=== PATIENT | female | born 1935 | race Caucasian/White ===

== ENCOUNTER 2019-08-25 09:23 | Outpatient (CLI) | payer MEDICARE, BC, SELFPAY ==
[2019-08-25 11:11] LABS: Alanine Aminotransferase 23 U/L (4-35); Albumin Level 3.9 g/dL (3.5-5.1); Alkaline Phosphatase 95 U/L (38-126); Aspartate Amino Transferase 23 U/L (14-36); Bilirubin,Total 0.4 mg/dL (0.2-1.3); Blood Urea Nitrogen 24 mg/dL (7-17); Calcium 9.4 mg/dL (8.4-10.2); Carbon Dioxide 31 mmol/L (22-30); Chloride 104 mmol/L (98-107); Cholesterol 179 mg/dL (0-200); Estimated Glomerular Filt Rate > 60; Glucose 83 mg/dL (65-105); HDL Direct 50 mg/dL; Potassium 4.2 mmol/L (3.4-5.0); Sodium 140 mmol/L (137-145); Triglycerides 153 mg/dL (<150)
[2019-08-25 11:22] LABS: LDL Cholesterol Direct 87 mg/dL
== END 2019-08-25 09:24 | disposition home or self-care (01) ==
LOC: ANHWCLAB 09:26
PROVIDERS: PCP Internal Medicine; Visit Provider Nurse Practitioner
DX: E78.5 Hyperlipidemia, unspecified (principal)
CPT/HCPCS: 36415; 80053; 80061

== ENCOUNTER 2019-11-01 12:32 | Outpatient (CLI) | payer MEDICARE, BC, SELFPAY ==
--- NOTE | ~2019-11-01 | MM_ITS ---
EXAMINATION: MM screening dawn LT w emilie HISTORY: Screening mammogram TECHNIQUE: Craniocaudal and mediolateral oblique 3-D tomosynthesis images were obtained and synthetic 2-D images were generated. CAD analysis was submitted and interpreted. COMPARISON: 10/12/2018, 10/06/2017 left digital screening mammogram examinations BREAST PARENCHYMAL COMPOSITION: There are scattered areas of fibroglandular density. FINDINGS: There is a biopsy marker on the left. History of prior benign left breast biopsy. There is no evidence of suspicious mass, calcification, or architectural distortion to suggest malignancy in e ither breast. There has been no suspicious interval change. IMPRESSION: 1. No mammographic evidence of malignancy. 2. Recommend routine screening mammography in one year. BI-RADS Category 2: Benign finding(s). Reviewed, dictated and finalized at location A.
--- NOTE | ~2019-11-01 | DEXA_ITS ---
Bone Density Report Name: Gisell Cummings Age: 84 Sex: Female Ethnicity: White Date of : 1935 Indication: postmenopausal; parental hip fracture; height loss; cancer; hysterectomy; Referring Provider: Javon Kwan Study: Bone densitometry was performed. Exam Date: November 01, 2019 Accession number: [id number] Bone Density: Region BMD T-score Z-score Classification AP Spine (L1-L4) 0.799 -2.3 0.6 Osteopenia Femoral Neck (Left) 0.715 -1.2 1.3 Osteopenia Total Hip (Left) 0.815 -1.0 1.2 Normal Total Hip Bilateral Avg 0.754 -1.5 0.7 Osteopenia Femoral Neck (Right) 0.621 -2.1 0.4 Osteopenia Total Hip (Right) 0.692 -2.1 0.2 Osteopenia World Health Organization criteria for BMD impression classify patients as: Normal (T-score at or above -1.0), Osteopenia (T-score between -1.0 and -2.5), or Osteoporosis (T-score at or below -2.5). 10-year Fracture Risk(1): Major Osteoporotic Fracture 30% Hip Fracture 20% Reported Risk Factors: [place] (), Neck BMD=0.621, BMI=25.9, parental fracture (1) FRAX(R) Version 3.08. Fracture probability calculated for an untreated patient. Fracture probability may be lower if the patient has received treatment. Clinical Information Provided by Patient: Parent has had a hip fracture Has used the following medications: Vitamin D, Calcium Has the following medical conditions: Cancer, Hysterectomy Patient maximum height was 65 Menopause Age: 27 Does not regularly consume dairy products Drinks caffeinated beverages Onset of menses at age 13 Number of children 0 Impression: The patient has low bone mass, based on the Total Spine T-score. The patient has an estimated ten-year risk of hip fracture of 20% and an estimated ten-year risk of major fracture of 30%, based on the WHO FRAX algorithm. The patient has risk factors, including: parental hip fracture. Discussion: BONE DENSITY IS LOW AT ONE OR MORE SKELETAL SITES. THE PATIENT'S BMD AND CLINICAL RISK FACTORS CONTRIBUTE TO THIS PATIENT'S HIGH RISK OF FRACTURE. This patient's lowest T-score is low at one or more skeletal sites. It meets the World Health Organization's (WHO) criteria for ?low bone mass? (T-score between -1.0 and -2.5). The patient's 10-year risk of hip fracture and 10 year risk of a major osteoporotic fracture as calculated by FRAX exceeds the threshold where pharmacological therapy is recommended by the National Osteoporosis Foundation (NOF). However, all treatment decisions require clinical judgment and consideration of individual patient factors, including patient preferences, comorbidities, previous drug use, risk factors not captured in the FRAX model (e.g., frailty, falls, vitamin D deficiency, increased bone turnover, interval significant decline in bone density) and possible under or overestimation of fractu
== END 2019-11-01 12:33 | disposition home or self-care (01) ==
PROVIDERS: PCP Internal Medicine; Visit Provider Nurse Practitioner
DX: Z12.31 Encounter for screening mammogram for malignant neoplasm of breast (principal); Z78.0 Asymptomatic menopausal state; M85.89 Other specified disorders of bone density and structure, multiple sites
CPT/HCPCS: 77063; 77067; 77080

== ENCOUNTER 2020-02-28 08:27 | Outpatient (CLI) | payer MEDICARE, BC, SELFPAY ==
[2020-02-28 09:09] LABS: Alanine Aminotransferase 36 U/L (4-35); Albumin Level 4.1 g/dL (3.5-5.1); Alkaline Phosphatase 91 U/L (38-126); Anion Gap 4 mmol/L (8-16); Aspartate Amino Transferase 30 U/L (14-36); Bilirubin,Total 0.7 mg/dL (0.2-1.3); Blood Urea Nitrogen 23 mg/dL (7-17); Calcium 9.7 mg/dL (8.4-10.2); Carbon Dioxide 31 mmol/L (22-30); Chloride 104 mmol/L (98-107); Cholesterol 216 mg/dL (0-200); Estimated Glomerular Filt Rate 60; Glucose 93 mg/dL (65-105); HDL Direct 63 mg/dL; Potassium 4.1 mmol/L (3.4-5.0); Sodium 139 mmol/L (137-145); Triglycerides 101 mg/dL (<150)
[2020-02-28 09:20] LABS: LDL Cholesterol Direct 116 mg/dL
[2020-02-28 09:39] LABS: Thyroid Stimulating Hormone 0.534 uIU/mL (0.465-4.680)
== END 2020-02-28 08:28 | disposition home or self-care (01) ==
PROVIDERS: PCP Internal Medicine; Visit Provider Internal Medicine
DX: I63.9 Cerebral infarction, unspecified (principal); I10 Essential (primary) hypertension; E78.5 Hyperlipidemia, unspecified; E03.9 Hypothyroidism, unspecified
CPT/HCPCS: 36415; 80053; 80061; 84443

== ENCOUNTER 2020-08-30 09:34 | Outpatient (CLI) | payer MEDICARE, BC, SELFPAY ==
[2020-08-30 12:59] LABS: Alanine Aminotransferase 33 U/L (4-35); Albumin Level 3.9 g/dL (3.5-5.1); Alkaline Phosphatase 70 U/L (38-126); Anion Gap 6 mmol/L (8-16); Aspartate Amino Transferase 32 U/L (14-36); Bilirubin,Total 0.5 mg/dL (0.2-1.3); Blood Urea Nitrogen 24 mg/dL (7-17); Calcium 9.1 mg/dL (8.4-10.2); Carbon Dioxide 30 mmol/L (22-30); Chloride 104 mmol/L (98-107); Cholesterol 198 mg/dL (0-200); Estimated Glomerular Filt Rate > 60; Glucose 84 mg/dL (65-105); HDL Direct 81 mg/dL; Potassium 4.2 mmol/L (3.4-5.0); Sodium 140 mmol/L (137-145); Triglycerides 104 mg/dL (<150)
[2020-08-30 13:10] LABS: LDL Cholesterol Direct 95 mg/dL
[2020-08-30 13:29] LABS: Thyroid Stimulating Hormone 0.685 uIU/mL (0.465-4.680)
== END 2020-08-30 09:35 | disposition home or self-care (01) ==
LOC: ANHWCLAB 09:44
PROVIDERS: PCP Internal Medicine; Visit Provider Internal Medicine
DX: E78.2 Mixed hyperlipidemia (principal); I10 Essential (primary) hypertension; E03.9 Hypothyroidism, unspecified; E78.5 Hyperlipidemia, unspecified
CPT/HCPCS: 36415; 80053; 80061; 84443

== ENCOUNTER → 2020-11-06 10:57 | Outpatient (CLI) | payer MEDICARE, BC, SELFPAY ==
--- NOTE | ~2020-11-06 | MM_ITS ---
EXAMINATION: MM screening dawn LT w emilie HISTORY: Screening mammogram TECHNIQUE: Craniocaudal and mediolateral oblique 3-D tomosynthesis images were obtained and synthetic 2-D images were generated. CAD analysis was submitted and interpreted. COMPARISON: 11/01/2019, 10/12/2018, 10/06/2017 left screening mammogram examinations BREAST PARENCHYMAL COMPOSITION: The breasts are heterogeneously dense, which may obscure small masses . FINDINGS: Status post right mastectomy for breast cancer 2014. Biopsy marker on the left; history of benign left breast biopsy in 2017. There is no evidence of suspicious mass, calcification, or architectural distortion to suggest malig franki in either breast. There has been no suspicious interval change. IMPRESSION: 1. No mammographic evidence of malignancy. 2. Recommend routine screening mammography in one year. BI-RADS Category 2: Benign finding(s). Reviewed, dictated and finalized at location A.
== END ==
PROVIDERS: PCP Internal Medicine; Visit Provider Nurse Practitioner
DX: Z12.31 Encounter for screening mammogram for malignant neoplasm of breast (principal)
CPT/HCPCS: 77063; 77067

== ENCOUNTER 2021-03-21 10:08 | Outpatient (CLI) | payer MEDICARE, BC, SELFPAY ==
[2021-03-21 13:46] LABS: LDL Cholesterol Direct 112 mg/dL
[2021-03-21 13:56] LABS: Alanine Aminotransferase 25 U/L (4-35); Albumin Level 4.3 g/dL (3.5-5.1); Alkaline Phosphatase 71 U/L (38-126); Anion Gap 8 mmol/L (8-16); Aspartate Amino Transferase 27 U/L (14-36); Bilirubin,Total 0.3 mg/dL (0.2-1.3); Blood Urea Nitrogen 23 mg/dL (7-17); Calcium 9.7 mg/dL (8.4-10.2); Carbon Dioxide 30 mmol/L (22-30); Chloride 104 mmol/L (98-107); Cholesterol 216 mg/dL (0-200); Estimated Glomerular Filt Rate > 60; Glucose 95 mg/dL (65-110); HDL Direct 67 mg/dL; Potassium 4.3 mmol/L (3.4-5.0); Sodium 142 mmol/L (137-145); Triglycerides 142 mg/dL (<150)
[2021-03-21 14:07] LABS: Thyroid Stimulating Hormone 0.373 uIU/mL (0.465-4.680)
== END 2021-03-21 10:09 | disposition home or self-care (01) ==
PROVIDERS: PCP Internal Medicine; Visit Provider Nurse Practitioner
DX: E78.2 Mixed hyperlipidemia (principal); Z13.21 Encounter for screening for nutritional disorder; E03.9 Hypothyroidism, unspecified
CPT/HCPCS: 36415; 80053; 80061; 84443

== ENCOUNTER → 2021-07-11 09:38 | Outpatient (CLI) | payer MEDICARE, BC, SELFPAY ==
[2021-07-11 12:54] LABS: Influenza A QL RT-PCR Negative (Negative); Influenza B QL RT-PCR Negative (Negative); SARS-CoV-2 RNA PCR Negative
== END ==
PROVIDERS: PCP Internal Medicine; Visit Provider Internal Medicine
DX: R68.89 Other general symptoms and signs (principal); Z20.822 Contact with and (suspected) exposure to COVID-19
CPT/HCPCS: 87502; C9803; U0003; U0005

== ENCOUNTER 2021-09-19 11:35 | Outpatient (CLI) | payer MEDICARE, BC, SELFPAY ==
[2021-09-19 13:34] LABS: Alanine Aminotransferase 29 U/L (4-35); Albumin Level 4.2 g/dL (3.5-5.1); Alkaline Phosphatase 63 U/L (38-126); Anion Gap 6 mmol/L (8-16); Aspartate Amino Transferase 29 U/L (14-36); Bilirubin,Total 0.4 mg/dL (0.2-1.3); Blood Urea Nitrogen 28 mg/dL (7-17); Calcium 9.3 mg/dL (8.4-10.2); Carbon Dioxide 30 mmol/L (22-30); Chloride 104 mmol/L (98-107); Cholesterol 214 mg/dL (0-200); Estimated Glomerular Filt Rate 53; Glucose 91 mg/dL (65-110); HDL Direct 53 mg/dL; Potassium 3.9 mmol/L (3.4-5.0); Sodium 140 mmol/L (137-145); Triglycerides 130 mg/dL (<150)
[2021-09-19 13:45] LABS: LDL Cholesterol Direct 104 mg/dL
[2021-09-19 13:46] LABS: Vitamin D 25 Hydroxy 54.8 ng/mL
== END 2021-09-19 11:36 | disposition home or self-care (01) ==
PROVIDERS: PCP Internal Medicine; Visit Provider Internal Medicine
DX: E78.2 Mixed hyperlipidemia (principal); I10 Essential (primary) hypertension; E03.9 Hypothyroidism, unspecified; Z13.21 Encounter for screening for nutritional disorder; E55.9 Vitamin D deficiency, unspecified
CPT/HCPCS: 36415; 80053; 80061; 82306; 84443

== ENCOUNTER → 2022-01-04 10:11 | Outpatient (CLI) | payer MEDICARE, BC, SELFPAY ==
--- NOTE | ~2022-01-04 | MM_ITS ---
EXAMINATION: MM screening dawn LT w emilie HISTORY: Screening TECHNIQUE: Craniocaudal and mediolateral oblique 3-D tomosynthesis images were obtained and synthetic 2-D images were generated. CAD analysis was submitted and interpreted. COMPARISON: Comparison to multiple prior studies sequentially, with oldest reviewed study dated 10/19. BREAST PARENCHYMAL COMPOSITION: The breasts are heterogeneously dense, which may obscure small masses . FINDINGS: There is no evidence of suspicious mass, calcification, or architectural distortion to sugg est malignancy in the left breast. There has been no suspicious interval change. IMPRESSION: 1. No mammographic evidence of malignancy. 2. Recommend routine screening mammography in one year. BI-RADS Category 1: Negative Reviewed, dictated and finalized at location A.
--- NOTE | ~2022-01-04 | DEXA_ITS ---
Bone Density Report Name: TAMMY DELA CRUZ Age: 86 Sex: Female Ethnicity: White Date of : 1935 Indication: osteopenia; monitoring treatment; parental hip fracture; height loss; hysterectomy; postmenopausal Referring Provider: ABRAHAM ROBERTS Study: Bone densitometry was performed. Exam Date: January 04, 2022 Accession number: [id number] Bone Density: Region BMD T-score Z-score Classification AP Spine (L1-L4) 0.814 -2.1 0.8 Osteopenia Femoral Neck (Left) 0.612 -2.1 0.4 Osteopenia Total Hip (Left) 0.808 -1.1 1.2 Osteopenia Femoral Neck (Right) 0.623 -2.0 0.5 Osteopenia Total Hip (Right) 0.759 -1.5 0.8 Osteopenia Total Hip Mean 0.784 -1.3 1.0 Osteopenia World Health Organization criteria for BMD impression classify patients as: Normal (T-score at or above -1.0), Osteopenia (T-score between -1.0 and -2.5), or Osteoporosis (T-score at or below -2.5). 10-year Fracture Risk: FRAX not reported because: Treated for osteoporosis Previous Exams: Region Exam Age BMD T-score BMD Change BMD Change Date g/cm2 vs Baseline vs Previous AP Spine(L1-L4) 01/04/2022 86 0.814 -2.1 -0.065* 0.020 10/06/2017 82 0.794 -2.3 -0.085* -0.047* 03/27/2015 80 0.841 -1.9 -0.038* -0.019 03/24/2013 78 0.859 -1.7 -0.020 -0.010 10/17/2010 75 0.870 -1.6 -0.009 0.003 01/06/2008 72 0.867 -1.6 -0.012 -0.012 11/13/2005 70 0.879 -1.5 Total Hip(Left) 01/04/2022 86 0.808 -1.1 -0.183* -0.089* 10/06/2017 82 0.897 -0.4 -0.094* -0.045* 03/27/2015 80 0.942 0.0 -0.050* 0.073* 03/24/2013 78 0.869 -0.6 -0.122* -0.029* 10/17/2010 75 0.898 -0.4 -0.093* -0.068* 01/06/2008 72 0.966 0.2 -0.025 -0.025 11/13/2005 70 0.991 0.4 Total Hip(Right) 01/04/2022 86 0.759 -1.5 -0.143* -0.025 10/06/2017 82 0.784 -1.3 -0.118* -0.073* 03/27/2015 80 0.856 -0.7 -0.045* -0.052* 03/24/2013 78 0.908 -0.3 0.007 0.094* 10/17/2010 75 0.815 -1.0 -0.087* -0.104* 01/06/2008 72 0.919 -0.2 0.018 0.018 11/13/2005 70 0.902 -0.3 *Denotes significance at 95% confidence level, LSC for AP Spine = 0.022 g/cm2, LSC for Total Hip = 0.027 g/cm2 Clinical Information Provided by Patient:
== END ==
PROVIDERS: PCP Internal Medicine; Visit Provider Nurse Practitioner
DX: Z12.31 Encounter for screening mammogram for malignant neoplasm of breast (principal); Z78.0 Asymptomatic menopausal state; M85.851 Other specified disorders of bone density and structure, right thigh; M85.852 Other specified disorders of bone density and structure, left thigh
CPT/HCPCS: 77063; 77067; 77080

== ENCOUNTER 2022-04-11 08:43 | Outpatient (CLI) | payer MEDICARE, BC, SELFPAY ==
[2022-04-11 17:20] LABS: Alanine Aminotransferase 26 U/L (6-35); Albumin Level 4.3 g/dL (3.5-5.1); Alkaline Phosphatase 62 U/L (38-126); Anion Gap 14 mmol/L (8-16); Aspartate Amino Transferase 84 U/L (14-36); Bilirubin,Total 0.5 mg/dL (0.2-1.3); Blood Urea Nitrogen 21 mg/dL (7-17); Calcium 9.1 mg/dL (8.4-10.2); Carbon Dioxide 27 mmol/L (22-30); Chloride 102 mmol/L (98-107); Cholesterol 224 mg/dL (0-200); Estimated Glomerular Filt Rate 53; Glucose 81 mg/dL (65-110); HDL Direct 54 mg/dL; Sodium 143 mmol/L (137-145); Triglycerides 124 mg/dL (<150)
[2022-04-11 17:31] LABS: LDL Cholesterol Direct 101 mg/dL
== END 2022-04-11 08:44 | disposition home or self-care (01) ==
LOC: ANHWCLAB 08:48
PROVIDERS: PCP Internal Medicine; Visit Provider Nurse Practitioner
DX: E78.5 Hyperlipidemia, unspecified (principal)
CPT/HCPCS: 36415; 80053; 80061

== ENCOUNTER → 2023-03-10 10:12 | Outpatient (CLI) | payer MEDICARE, BC, SELFPAY ==
--- NOTE | ~2023-03-10 | MM_ITS ---
EXAMINATION: MM screening dawn LT w emilie HISTORY: Screening mammogram TECHNIQUE: Craniocaudal and mediolateral oblique 3-D tomosynthesis images were obtained and synthetic 2-D images were generated. CAD analysis was submitted and interpreted. COMPARISON: 01/04/2022, 11/06/2020, 11/01/2019 left screening mammogram examinations BREAST PARENCHYMAL COMPOSITION: The breasts are heterogeneously dense, which may obscure small masses . FINDINGS: History of right mastectomy in 2014 for breast malignancy. History of benign left breast bi opsy in 2017, with radiopaque biopsy marker noted in the upper inner quadrant. Scattered benign calcifications. There is no evidence of suspicious mass, calcification, or architectural distortion to suggest malign blas in either breast. There has been no suspicious interval change. IMPRESSION: 1. Status post post right mastectomy for breast cancer. No mammographic evidence of malignancy of lef t breast. 2. Recommend routine screening mammography in one year. BI-RADS Category 2: Benign finding(s). Reviewed, dictated and finalized at location A. IMPRESSION: 1. Status post post right mastectomy for breast cancer. No mammographic evidenc e of malignancy of left breast. 2. Recommend routine screening mammography in one year. BI-RADS Category 2: Benign finding(s).
== END ==
PROVIDERS: PCP Nurse Practitioner Family; Visit Provider Nurse Practitioner Family
DX: Z12.31 Encounter for screening mammogram for malignant neoplasm of breast (principal)
CPT/HCPCS: 77063; 77067

== ENCOUNTER 2023-04-25 08:26 | Outpatient (CLI) | payer MEDICARE, BC, SELFPAY ==
[2023-04-25 16:35] LABS: Basophils Percent Auto 0.8 % (0.2-1.2); Eosinophils Absolute Auto 0.1 K/mm3 (0-0.3); Eosinophils Percent Auto 2.3 % (0-4.4); Hematocrit 40.2 % (37.0-47.0); Hemoglobin 12.5 g/dL (12.0-15.0); Immature Granulocyte Absolute 0.02 K/mm3 (0.00-0.031); Immature Granulocyte Percent A 0.4 % (0-0.5); Lymphocytes Absolute Auto 1.84 K/mm3 (0.9-3.2); Lymphocytes Percent Auto 38.2 % (18.3-44.2); Mean Corpuscular HGB Conc 31.1 g/dl (32-36); Mean Corpuscular Hemoglobin 30.5 pg (26-34); Mean Platelet Volume 10.4 fl (7.4-10.4); Monocytes Absolute Auto 0.4 K/mm3 (0.1-0.6); Monocytes Percent Auto 7.9 % (2.6-8.5); Neutrophils Absolute Auto 2.4 K/mm3 (1.3-6.7); Neutrophils Percent Auto 50.4 % (45.5-73.1); Platelet Count Result 260 k/mm3 (150-375); Red Cell Distribution Width 13.3 % (11.5-14.5); White Blood Count 4.8 K/mm3 (4.5-10.0)
[2023-04-25 19:05] LABS: Alanine Aminotransferase 26 U/L (6-35); Albumin Level 4.1 g/dL (3.5-5.1); Alkaline Phosphatase 53 U/L (38-126); Anion Gap 11 mmol/L (8-16); Aspartate Amino Transferase 64 U/L (14-36); Bilirubin,Total 0.5 mg/dL (0.2-1.3); Blood Urea Nitrogen 27 mg/dL (7-17); Calcium 9.1 mg/dL (8.4-10.2); Carbon Dioxide 26 mmol/L (22-30); Chloride 104 mmol/L (98-107); Estimated Glomerular Filt Rate 52; Glucose 74 mg/dL (65-110); Potassium 4.2 mmol/L (3.4-5.0); Sodium 141 mmol/L (137-145)
== END 2023-04-25 08:27 | disposition home or self-care (01) ==
LOC: ANHWCLAB 08:28
PROVIDERS: PCP Nurse Practitioner Family; Visit Provider Nurse Practitioner Family
DX: E03.9 Hypothyroidism, unspecified (principal); I10 Essential (primary) hypertension; E78.2 Mixed hyperlipidemia; Z85.3 Personal history of malignant neoplasm of breast; Z12.39 Encounter for other screening for malignant neoplasm of breast
CPT/HCPCS: 36415; 80053; 84443; 85025

== ENCOUNTER 2023-10-30 09:39 | Outpatient (CLI) | payer MEDICARE, BC, SELFPAY ==
[2023-10-30 16:54] LABS: Alanine Aminotransferase 24 U/L (6-35); Albumin Level 4.2 g/dL (3.5-5.1); Alkaline Phosphatase 66 U/L (38-126); Anion Gap 7 mmol/L (4-12); Aspartate Amino Transferase 69 U/L (14-36); Bilirubin,Total 0.5 mg/dL (0.2-1.3); Blood Urea Nitrogen 25 mg/dL (7-17); Calcium 9.2 mg/dL (8.4-10.2); Carbon Dioxide 28 mmol/L (22-30); Chloride 105 mmol/L (98-107); Cholesterol 215 mg/dL (0-200); Estimated Glomerular Filt Rate 47; Glucose 87 mg/dL (65-110); HDL Direct 59 mg/dL; Potassium 3.9 mmol/L (3.4-5.0); Sodium 140 mmol/L (137-145); Triglycerides 157 mg/dL (<150)
[2023-10-30 17:05] LABS: LDL Cholesterol Direct 115 mg/dL
== END 2023-10-30 09:40 | disposition home or self-care (01) ==
PROVIDERS: PCP Nurse Practitioner Family; Visit Provider Nurse Practitioner Family
DX: I10 Essential (primary) hypertension (principal)
CPT/HCPCS: 36415; 80053; 80061

== ENCOUNTER 2024-04-17 12:12 | Outpatient (CLI) | payer MEDICARE, BC, SELFPAY ==
--- NOTE | ~2024-04-17 | MM_ITS ---
EXAMINATION: MM screening dawn LT w emilie HISTORY: Screening mammogram TECHNIQUE: Craniocaudal and mediolateral oblique 3-D tomosynthesis images were obtained and synthetic 2-D images were generated. CAD analysis was submitted and interpreted. COMPARISON: 03/10/2023, 01/04/2022, 11/06/2020 BREAST PARENCHYMAL COMPOSITION:Not Dense. There are scattered areas of fibroglandular density. FINDINGS: No suspicious mass, calcification, or architectural distortion are identified in either chel ast to suggest malignancy. There has been no suspicious interval change. IMPRESSION: No mammographic evidence of malignancy. Recommend routine screening mammography in one year. BI-RADS Category 1: Negative Reviewed, dictated and finalized at location . K REPAIRER
== END 2024-04-17 12:13 | disposition home or self-care (01) ==
LOC: MICIMG 12:13
PROVIDERS: PCP Nurse Practitioner Family; Visit Provider Nurse Practitioner Family
DX: Z12.31 Encounter for screening mammogram for malignant neoplasm of breast (principal)
CPT/HCPCS: 77063; 77067

== ENCOUNTER 2024-05-15 09:00 | Outpatient (CLI) | payer MEDICARE, BC, SELFPAY ==
[2024-05-15 09:27] LABS: Basophils Absolute Auto 0.1 K/mm3 (0.0-0.1); Basophils Percent Auto 0.8 % (0.2-1.2); Eosinophils Absolute Auto 0.1 K/mm3 (0-0.3); Eosinophils Percent Auto 2.4 % (0-4.4); Hematocrit 40.9 % (37.0-47.0); Immature Granulocyte Absolute 0.03 K/mm3 (0.00-0.031); Immature Granulocyte Percent A 0.5 % (0-0.5); Lymphocytes Absolute Auto 1.99 K/mm3 (0.9-3.2); Lymphocytes Percent Auto 33.6 % (18.3-44.2); Mean Corpuscular HGB Conc 31.8 g/dl (32-36); Mean Corpuscular Hemoglobin 30.4 pg (26-34); Mean Corpuscular Volume 95.8 fl (80-100); Mean Platelet Volume 10.2 fl (7.4-10.4); Monocytes Absolute Auto 0.4 K/mm3 (0.1-0.6); Monocytes Percent Auto 7.4 % (2.6-8.5); Neutrophils Absolute Auto 3.3 K/mm3 (1.3-6.7); Neutrophils Percent Auto 55.3 % (45.5-73.1); Platelet Count Result 288 k/mm3 (150-375); Red Blood Count 4.27 M/mm3 (4.2-5.4); Red Cell Distribution Width 12.9 % (11.5-14.5); White Blood Count 5.9 K/mm3 (4.5-10.0)
[2024-05-15 09:45] LABS: Alanine Aminotransferase 26 U/L (6-35); Albumin Level 4.3 g/dL (3.5-5.1); Alkaline Phosphatase 61 U/L (38-126); Anion Gap 5 mmol/L (4-12); Aspartate Amino Transferase 28 U/L (14-36); Bilirubin,Total 0.4 mg/dL (0.2-1.3); Blood Urea Nitrogen 25 mg/dL (7-17); Calcium 9.6 mg/dL (8.4-10.2); Carbon Dioxide 31 mmol/L (22-30); Chloride 106 mmol/L (98-107); Estimated Glomerular Filt Rate 47; Glucose 93 mg/dL (65-110); Potassium 4.2 mmol/L (3.4-5.0); Sodium 142 mmol/L (137-145)
== END 2024-05-15 09:01 | disposition home or self-care (01) ==
LOC: ANHLAB 09:03
PROVIDERS: PCP Nurse Practitioner Family; Visit Provider Nurse Practitioner Family
DX: E03.9 Hypothyroidism, unspecified (principal); I10 Essential (primary) hypertension; E78.2 Mixed hyperlipidemia; N32.81 Overactive bladder; I63.9 Cerebral infarction, unspecified; C50.919 Malignant neoplasm of unspecified site of unspecified female breast
CPT/HCPCS: 36415; 80053; 84443; 85025

== ENCOUNTER 2024-09-01 12:23 | Outpatient (CLI) | payer MEDICARE, BC, SELFPAY ==
--- NOTE | ~2024-09-01 | XR_ITS ---
Left Knee Technique: AP, lateral, and sunrise views were obtained. Clinical History: Pain Findings: No fracture or dislocation is seen. Osseous alignment is anatomic. Mild tricompartmental de generative changes present. Soft tissues are unremarkable. No joint effusion is seen. Impression: Mild tricompartmental degenerative change. Reviewed, dictated and finalized at [facility]. Impression: Mild tricompartmental degenerative change.
== END 2024-09-01 12:24 | disposition home or self-care (01) ==
PROVIDERS: PCP Nurse Practitioner Family; Visit Provider Nurse Practitioner Family
DX: M25.562 Pain in left knee (principal); R93.6 Abnormal findings on diagnostic imaging of limbs
CPT/HCPCS: 73562

== ENCOUNTER 2024-10-28 13:06 | Outpatient (CLI) | payer MEDICARE, BC, SELFPAY ==
--- NOTE | ~2024-10-28 | DEXA_ITS ---
Bone Density Report Name: TAMMY DELA CRUZ Age: 89 Sex: Female Ethnicity: White Date of : 1935 Indication: osteopenia; monitoring treatment; parental hip fracture; height loss; cancer; hysterectomy; Referring Provider: ALEJANDRO VARGHESE Study: Bone densitometry was performed. Exam Date: October 28, 2024 Accession number: [id number] Bone Density: Region BMD T-score Z-score Classification AP Spine(L1-L4) 0.898 -1.4 1.5 Osteopenia Femoral Neck (Left) 0.679 -1.5 1.0 Osteopenia Total Hip (Left) 0.804 -1.1 1.2 Osteopenia Femoral Neck (Right) 0.669 -1.6 0.9 Osteopenia Total Hip (Right) 0.762 -1.5 0.9 Osteopenia Total Hip Mean 0.783 -1.3 1.1 Osteopenia World Health Organization criteria for BMD impression classify patients as: Normal (T-score at or above -1.0), Osteopenia (T-score between -1.0 and -2.5), or Osteoporosis (T-score at or below -2.5). 10-year Fracture Risk: FRAX not reported because: Treated for osteoporosis Previous Exams: -- Region Exam Age BMD T-score BMD Change BMD Change Date g/cm2 vs Baseline vs Previous -- AP Spine (L1-L4) 10/28/2024 89 0.898 -1.4 -1.8%# 10.3%* 01/04/2022 86 0.814 -2.1 -10.9%# 2.6% 10/06/2017 82 0.794 -2.3 -13.2%# -5.6%* 03/27/2015 80 0.841 -1.9 -8.0%# -2.2% 03/24/2013 78 0.859 -1.7 -6.0%# -1.2% 10/17/2010 75 0.870 -1.6 -4.8%# 0.4% 01/06/2008 72 0.867 -1.6 -5.2%# -1.4% 11/13/2005 70 0.879 -1.5 -3.8%# -3.8%# 08/31/2003 68 0.914 -1.2 Total Hip(Left) 10/28/2024 89 0.804 -1.1 -17.4%# -0.5% 01/04/2022 86 0.808 -1.1 -17.0%# -9.9%* 10/06/2017 82 0.897 -0.4 -7.9%# -4.7%* 03/27/2015 80 0.942 0.0 -3.3%# 8.4%* 03/24/2013 78 0.869 -0.6 -10.8%# -3.2%* 10/17/2010 75 0.898 -0.4 -7.8%# -7.0%* 01/06/2008 72 0.966 0.2 -0.8%# -2.5% 11/13/2005 70 0.991 0.4 1.8%# 1.8%# 08/31/2003 68 0.974 0.3 Total Hip(Right) 10/28/2024 89 0.762 -1.5 -13.9%# 0.5% 01/04/2022 86 0.759 -1.5 -14.3%# -3.2% 10/06/2017 82 0.784 -1.3 -11.5%# -8.5%* 03/27/2015 80 0.856 -0.7 -3.3%# -5.7%* 03/24/2013 78 0.908 -0.3 2.6%# 11.5%* 10/17/2010 75 0.815 -1.0 -8.0%# -11.4%* 01/06/2008 72 0.919 -0.2 3.8%# 1.9% 11/13/2005 70 0.902 -0.3 1.8%# 1.8%# 08/31/2003 68 0.886 -0.5 -- *Denotes significance at 95% confidence level, LSC for AP Spine = 0.022 g/cm2, LSC for Total Hip = 0.027 g/cm2 # Denotes dissimilar scan types or analysis methods Clinical Information Provided by Patient: Parent has had a hip fracture Is being treated for osteoporosis Has used the following medications: Fosamax (i.e. alendronate), Vitamin D, Calcium Has the following medical conditions: Cancer, Hysterectomy Patient maximum height was 65 Menopause Age: 27 No regular weight bearing exercise Does not regularly consume dairy products Drinks caffeinated beverages Onset of menses at age 12 Number of children 0 Impression: The patient has low bone mass, based on the Right Femoral Neck T-score. The patient has risk factors, including: parental hip fracture. No significant bone loss was observed. Discussion: PATIENT UNDER TREATMENT WITH NO SIGNIFICANT BMD LOSS SINCE LAST EXAM. In an untreated patient, BMD typically declines with age. A lack of decline or gain is usually a sign that treatment is efficacious and fracture risk is reduced. It is important to ask patients whether they are taking their medications and to encourage continued and appropriate compliance with their osteoporosis therapies to reduce fracture risk. It is also important to review their risk factors and encourage appropriate calcium and vitamin D intakes, exercise, fall prevention and other lifestyle measures. Follow-Up: Consider a repeat BMD and Vertebral Fracture Assessment (VFA) exam in 2 years or sooner if medically necessary, to reassess this patient's status. Reported by: SADIE on 10/28/2024 1:28:00 PM. Reviewed, dictated and finalized at location A.
== END 2024-10-28 13:07 | disposition home or self-care (01) ==
LOC: MICIMG 13:07
PROVIDERS: PCP Nurse Practitioner Family; Visit Provider Nurse Practitioner Family
DX: M85.89 Other specified disorders of bone density and structure, multiple sites (principal); Z78.0 Asymptomatic menopausal state; Z13.220 Encounter for screening for lipoid disorders; Z13.820 Encounter for screening for osteoporosis
CPT/HCPCS: 77080

== ENCOUNTER 2024-11-04 09:28 | Outpatient (CLI) | payer MEDICARE, BC, SELFPAY ==
--- OUTSIDE RECORDS SUMMARY | 2024-11-04 09:48 | XMS_ITS | Referral Summary ---
Author Organization [facility] [address] [place] [id number] Care Team Providers Care Personnel Coordinator Name Role Phone Yoni Solis MD Unavailable Ramana Grant MD Unavailable [phone] Ravi Garcia DO Primary Care Provider [phone] Allergies Active Allergy Reactions Criticality Noted Date Comments Bphnupw-Jng-Cwx Reductase Inhibitors Unknown 01/27/2020 Sulfa (Sulfonamide Antibiotics) Unknown 01/03 Medications amLODIPine (NORVASC) 5 mg tablet 8 Active SYNTHROID 100 mcg tablet 8 Active MYRBETRIQ 25 mg tablet extended release 24 hr 25 mg 8 Active losartan (COZAAR) 100 mg tablet 8 Active aspirin 81 mg tablet Take 81 mg by mouth daily. Active calcium-vits V6-M-Z6-mineral s 166.75 mg- 166.75 unit capsule Take by mouth. Activ e psyllium (METAMUCIL) powder Take 1 packet by mouth 3 (three) times a day. Active fish oil-dha-epa 1,200-144-216 mg capsule Take by mouth. Acti ve glucosam-chondr oitin-diet cb25 116-100 mg capsule Take by mouth. Activ e hydroCHLOROthia zide (MICROZIDE) 12.5 mg capsule Take 12.5 mg by mouth daily. Active anastrozole (ARIMIDEX) 1 mg tabletIndicatio ns:Hormone Receptor Positive Breast Cancer Take 1 tablet (1 mg total) by mouth daily 90 tablet 3 9 Active Additional Information Patient not taking.Reported on 01/27/2020 ezetimibe (ZETIA) 10 mg tablet Take 10 mg by mouth daily Active clopidogreL (PLAVIX) 75 mg tablet Take 75 mg by mouth daily Active alendronate (FOSAMAX) 70 mg tablet Take 70 mg by mouth every 7 days Take in the morning with a full glass of water, on an empty stomach, and do not take anything else by mouth or lie down for the next 30 min. Active Active Problems Problem Noted Date Diagnosed Date Malignant neoplasm of upper- outer quadrant of right breast in female, estrogen receptor positive 01/28/2018 Cancer Staging:Clinical stage from 11/25/2014:Stage IA(cT1c, cN0(sn), cM0, G2, ER: Positive, IA: Positive, HER2: Negative) - Signed by Ramana Grant MD on 01/29/2018 Immunizations Immunization Administration Dates Next Due Influenza, Trivalent, High D ose, Split, Preservative Free, Intramuscular 03/10/2019,02/25/2018 Influenza, Unspecified 04/28/2018 ZOSTER LIVE 07/22/2018,04/28/2018 Social History Tobacco Use Types Packs/Day Years Used Date Smoking Tobacco: Never Smokeless Tobacco: Never Alcohol Use Standard Drinks/Week Comments No 0 (1 standard drink = 0.6 oz pur e alcohol) Personal Safety Answer Date Recorded Getting School Help Needed Not on file 08/18 Comments Unknown Sex and Gender Information Value Date Recorded Sex Assigned at Not on file 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 Gender Identity Not on file Sexual Orientation Not on file Last Filed Vital Signs Vital Sign Reading Time Taken Comments Blood Pressure 152/71 01/27/2020 3:21 PM CDT Pulse 81 01/27/2020 3:21 PM CDT Temperature 37.3 C (99.1 F) 01/27/2020 3:21 PM CDT Respiratory Rate 18 01/27/2020 3:21 PM CDT Oxygen Saturation 97% 01/27/2020 3:21 PM CDT Inhaled Oxygen Concentration - - Weight 65.9 kg (145 lb 3.2 oz) 01/27/2020 3:21 P M CDT Height 160 cm (5' 3) 01/27/2020 3:21 PM CDT Body Mass Index 25.72 01/27/2020 3:21 PM CDT Plan of Treatment Not on file Insurance MEDICARE [facility] Care Teams Personnel Coordinator Relationship Specialty Start Date End Date Ravi Garcia DO [address] [place] [address] PCP - General Internal Medicine 01/28/19 Yoni Solis MD [address] [place] [address] Referring Physician Vascular Surgery 07/29/18 Ramana Grant MD [address] [place] [address] Medical Oncologist/Recycler Forklift Driver Truck Driver Hematology and Oncology 07/30/18
--- OUTSIDE RECORDS SUMMARY | 2024-11-04 09:48 | XMS_ITS ---
Author Name Auto Generated, Auto Generated Organization [facility] Address [address] [place] [address] Phone [phone] Care Team Providers Care Automotive Quality Manager Name Role Phone Juancho Morrisbritt [facility] [phone] Functional Status No Results Mental Status No Results Allergies and Intolerances No Known Allergies Encounters Program Name Primary Diagnosis Admission Date/Time Dis charge Date/Time null SunAug 17 20:00 :00 EDT [facility] SunSep 02 20:00:00 EDT 2024October 23 18:00:00 EDT 2024 Problems Active Concerns * Pain in left knee* Code: * Start Date: SunSep 03 00:00:00 EDT 2024 * End Date: * Text: * Weakness* Code: * Start Date: SunSep 03 00:00:00 EDT 2024 * End Date: * Text: * Unsteadiness on feet* Code: * Start Date: SunSep 03 00:00:00 EDT 2024 * End Date: * Text: * Other abnormalities of gait and mobility* Code: * Start Date: SunSep 03 00:00:00 EDT 2024 * End Date: * Text: Reason for Referral
--- OUTSIDE RECORDS SUMMARY | 2024-11-04 09:48 | XMS_ITS | Clinical Summary ---
Author Organization [facility] [address] [place] [id number] Care Team Providers Care Used Building Materials Yard Worker Name Role Phone Yoni Solis MD Unavailable Ramana Grant MD Unavailable [phone] Ravi Garcia DO Primary Care Provider [phone] Allergies Active Allergy Reactions Criticality Noted Date Comments Nkwlkix-Jsw-Adu Reductase Inhibitors Unknown 01/27/2020 Sulfa (Sulfonamide Antibiotics) Unknown 01/03 Medications amLODIPine (NORVASC) 5 mg tablet 8 Active SYNTHROID 100 mcg tablet 8 Active MYRBETRIQ 25 mg tablet extended release 24 hr 25 mg 8 Active losartan (COZAAR) 100 mg tablet 8 Active aspirin 81 mg tablet Take 81 mg by mouth daily. Active calcium-vits P9-F-Y5-mineral s 166.75 mg- 166.75 unit capsule Take [...] 11/25/2014:Stage IA(cT1c, cN0(sn), cM0, G2, ER: Positive, NV: Positive, HER2: Negative) - Signed by Ramana Grant MD on 01/29/2018 Immunizations Immunization Administration Dates Next Due Influenza, Trivalent, High D ose, Split, Preservative Free, Intramuscular 03/10/2019,02/25/2018 Influenza, Unspecified 04/28/2018 ZOSTER LIVE 07/22/2018,04/28/2018 Surgical History Surgery Date Site/Laterality Comments BREAST BIOPSY MASTECTOMY APPENDECTOMY COLONOSCOPY Medical History Medical History Date Comments Breast cancer (HCC) Hypertension Hypercholesteremia Stroke (HCC) Family History Medical History Relation Name Comments Lymphoma Sister Ovarian cancer Sister Stomach cancer Sister Relation Name Status Comments Sister Social History Tobacco Use Types Packs/Day Years [...] on file 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 Gender Identity Not on file Sexual Orientation Not on file Obstetrics History Last Filed Vital Signs Vital Sign Reading [...] of Treatment Not on file Insurance MEDICARE [facility] Care Teams Used Building Materials Yard Worker Relationship Specialty Start Date End Date Ravi Garcia DO [address] [place] [address] PCP - General Internal Medicine 01/28/19 Yoni Solis MD [address] [place] [address] Referring Physician Vascular Surgery 07/29/18 Ramana Grant MD [address] [address] Medical Oncologist/Case Finisher Hematology and Oncology 07/30/18
--- OUTSIDE RECORDS SUMMARY | 2024-11-04 09:48 | XMS_ITS | Continuity of Care Document ---
Author Organization [facility] Address [address] [place] [address] [place] [address] Phone Care Team Providers Care Junior Graphic Designer Name Role Phone Nayan Bartholomew Unavailable Unavailable Procedures Procedure Date Eye Exam Established Pt Ophthalmoscopy, Subsequent Eye Exam Established Pt Ophthalmoscopy, Subsequent Optic Nerve Topography Eye Exam Established Pt Ophthalmoscopy, Subsequent Post-op Follow-up Visit Ophthalmoscopy, Subsequent Optic Nerve Topography Post-op Follow-up Visit Ophthalmoscopy, Subsequent Eye Exam & Treatment Ophthalmoscopy, Subsequent Optic Nerve Topography Post-op Follow-up Visit Post-op Follow-up Visit Remove Cataract, Insert Lens,Comanaged N Office/outpatient Visit, Est IOLMaster Eye Exam Established Pt Post-op Follow-up Visit Advance Directives Directive Yes / No Effective Date File Name No Information Encounters Encounter Description Practice Location Reason(s) For Visit Diagnoses Date Provider Providers Copied on Encounter [facility], [address] [place] [address] [address], [place], [place], [id number], [place] tel:[phone] [facility] No Information 0 Puma Spicer. [address] [place], [address], [place]. tel:[phone] Referring Provider: Nayan Shaw, [address] [place], [address]. tel:[phone] [facility], [address], [place], [place], [id number], [place] tel:[phone] [facility] No Information Dec- 4-200 9 Bartholomewrolly Spicer. [address] [place], [address], [place]. tel:[phone] Referring Provider: Nayan Shaw, [address] [place], [address]. tel:[phone] [facility], [address], [place], [place], [id number], [place] tel:[phone] [facility] No Information Oct-1 2-200 9 Puma Spicer. [address] [place], [address], [place]. tel:[phone] Referring Provider: Nayan Shaw, [address] [place], [address]. tel:[phone] [facility], [address], [place], [place], [id number], [place] tel:[phone] [facility] No Information Sep- 4-200 9 Puma Spicer. [address] [place], [address], [place]. tel:[phone] Referring Provider: Nayan Shaw, [address] [place], [address]. tel:[phone] [facility], [address], [place], [place], [id number], [place] tel:[phone] [facility] No Information Aug-2 4-200 9 Puma Spicer. [address] [place], [address], [place]. tel:[phone] Referring Provider: Nayan Shaw, [address] [place], [address]. tel:[phone] [facility], [address] [place] [address] [address], [place], [place], [id number], [place] tel:[phone] [facility] No Information Jose-2 7-200 9 Puma Spicer. [address] [place], [place], [facility], [place]. tel:[phone] Referring Provider: Nayan Shaw, [address] [place], [address]. tel:[phone] [facility], [address] [place] [address] [address], [place], [place], [id number], [place] tel:[phone] [facility] [place] No Information Nov-1 2-200 8 Doisy Edward. [address], [place], [place], [facility], [place]. tel:[phone] [facility], [address] [place] [address] [address], [place], [place], [id number], [place] tel:[phone] [facility] No Information Nov-0 5-200 8 Doijorge Ednadeen. [address] , [address], [place], [place], [facility], [place]. tel:[phone] [facility], [address] [place] [address] [address], [place], [place], [id number], [place] tel:[phone] [facility] No Information Nov-0 4-200 8 Doisy Ednadeen. [address], [place], [place], [facility], [place]. tel:[phone] Referring Provider: Maine Ramirez OD, [address], [place], [address]. tel:[phone] Office/outpat ient Visit, Est [facility], [address] [place] [address] [address], [place], [place], [id number], [place] tel:[phone] [facility] No Information 8 Lily Cline. [address] , [address], [place], [address], . tel:[phone] Referring Provider: Maine Ramirez OD, [address], [place], [address]. tel:[phone] [facility], [address] [place] [address] [address], [place], [place], [address], [place] tel:[phone] [facility] No Information 7 Lily Cline. [address] , [address], [place], [place], [facility], . tel:[phone] [facility], [address] [place] [address] [address], [place], [place], [id number], [place] tel:[phone] [facility] No Information 7 Puma Spicer. [address] [place], [place], [facility], . tel:[phone] Family History Family Member Type Diagnosis Age At Onset No Information Payers Payer name Insurance type Covered libertarian ID Authoriza tion(s) Medicare [facility] [id number] BCBS [facility] [id number] Social History Type Description Quantity Date Captured Comments Sex Female Smoking Status No Information Chief Complaint And Reason For Visit No Information Reason For Referral Reason For Referral No Information History Of Present Illness Encounter Date Complaint History Of Prese nt Illness No Information Functional Status Date Functional Assessmen t No Information Instructions Date Instruction Additional Infor mation No Information Assessments Type Assessment Date No Information Patient Care Teams Name Effective Dates (start - stop) Status Members No Information
--- OUTSIDE RECORDS SUMMARY | 2024-11-04 09:48 | XMS_ITS ---
Author Name Auto Generated, Auto Generated Organization [facility] Address [address] [place] [address] Phone [phone] Care Team Providers Care Grain Elevator Clerk Name Role Phone [facility] [phone] Functional Status No Results Mental Status No Results Allergies and Intolerances No Known Allergies Encounters Program Name Primary Diagnosis Admission Date/Time Dis charge Date/Time [facility] SunSep 02 20:00:00 EDT 2024October 23 18:00:00 EDT 2024 null SunAug 17 20:00 :00 EDT 2020 Problems Active Concerns * Pain in left [...]
[2024-11-04 09:55] LABS: Basophils Absolute Auto 0.1 K/mm3 (0.0-0.1); Basophils Percent Auto 0.8 % (0.2-1.2); Eosinophils Absolute Auto 0.1 K/mm3 (0-0.3); Eosinophils Percent Auto 1.6 % (0-4.4); Hematocrit 42.3 % (37.0-47.0); Hemoglobin 13.5 g/dL (12.0-15.0); Immature Granulocyte Absolute 0.03 K/mm3 (0.00-0.031); Immature Granulocyte Percent A 0.4 % (0-0.5); Lymphocytes Absolute Auto 1.89 K/mm3 (0.9-3.2); Lymphocytes Percent Auto 23.7 % (18.3-44.2); Mean Corpuscular HGB Conc 31.9 g/dl (32-36); Mean Corpuscular Hemoglobin 30.3 pg (26-34); Mean Corpuscular Volume 95.1 fl (80-100); Mean Platelet Volume 9.8 fl (7.4-10.4); Monocytes Absolute Auto 0.4 K/mm3 (0.1-0.6); Monocytes Percent Auto 5.5 % (2.6-8.5); Neutrophils Absolute Auto 5.4 K/mm3 (1.3-6.7); Platelet Count Result 326 k/mm3 (150-375); Red Blood Count 4.45 M/mm3 (4.2-5.4); Red Cell Distribution Width 13.2 % (11.5-14.5)
[2024-11-04 11:19] LABS: Alanine Aminotransferase 31 U/L (6-35); Albumin Level 4.5 g/dL (3.5-5.1); Alkaline Phosphatase 66 U/L (38-126); Anion Gap 7 mmol/L (4-12); Aspartate Amino Transferase 34 U/L (14-36); Bilirubin,Total 0.5 mg/dL (0.2-1.3); Blood Urea Nitrogen 26 mg/dL (7-17); Calcium 9.9 mg/dL (8.4-10.2); Carbon Dioxide 29 mmol/L (22-30); Chloride 104 mmol/L (98-107); Estimated Glomerular Filt Rate 52; Glucose 103 mg/dL (65-110); Potassium 4.3 mmol/L (3.4-5.0); Sodium 140 mmol/L (137-145); Total Protein 7.9 g/dL (6.3-8.2)
== END 2024-11-04 09:29 | disposition home or self-care (01) ==
PROVIDERS: PCP Nurse Practitioner Family; Visit Provider Nurse Practitioner Family
DX: I63.9 Cerebral infarction, unspecified (principal); C50.919 Malignant neoplasm of unspecified site of unspecified female breast; I10 Essential (primary) hypertension; E78.2 Mixed hyperlipidemia; E03.9 Hypothyroidism, unspecified; N32.81 Overactive bladder; Z85.3 Personal history of malignant neoplasm of breast
CPT/HCPCS: 36415; 80053; 84443; 85025